=== PATIENT | female | born 1995 | race Caucasian/White ===

== ENCOUNTER 2017-02-15 23:12 | Outpatient (CLI) | payer OTHER ==
[~2017-02-15] VITALS: Ht 160 cm; Wt 79.2 kg
[~2017-02-15 23:12] MED LIST: CYCL-319 PO; HYDR-3498 PO; IBUP-1542 PO
[2017-02-15 23:41] VITALS: BP 117/70; PULSE 107; RESP 18
[2017-02-15] MEDS ORDERED: CALC600T5 PO (23:52)
[2017-02-15] MEDS ORDERED: PREN-17 PO (23:52)
--- NOTE | 2017-02-16 06:54 | RADRPT ---
PROCEDURE: Ultrasound Biophysical profile CLINICAL INDICATION: Contractions, labor TECHNIQUE: Color and gomez-scale ultrasound images of an intrauterine gestation were obtained. COMPARISON: OB ultrasound of 02/16/2017 FINDINGS: A single live intrauterine gestation is identified in cephalic position with an estimated hear t rate of 139 beats per minute. The placenta is located anteriorly and grade II. GIULIANO is 12.2 cm. movement 2/2. tone 2/2. breathing movement 2/2. Qualitative AFV 2/2 Total biophysical profile 10/17 IMPRESSION: 10/17 biophysical profile. RPTAT: HJES .Joshua Sage MD, MD Date Time Electronically viewed and signed by .Joshua Sage MD, on 02/16/2017 06:03 .S/
--- NOTE | 2017-02-16 06:54 | RADRPT ---
PROCEDURE: Obstetrical ultrasound, limited. CLINICAL INDICATION: Pelvic pain. TECHNIQUE: Multiple sonographic images of the pelvis were obtained using transabdominal technique . Images were obtained with gomez scale and color Doppler. The images were reviewed on a PACS works tation. COMPARISON: No prior studies are available for comparison. FINDINGS: There is a single living intrauterine gestation with the fetus in a cephalic presentation. he art tones of 136 beats per minute are identified. The placenta is anterior in location, grade 2. T here is no evidence of placenta previa or abruption. Measurements were made in order to determine age. The results are as follows: BPD =8.74 cm HC =32.48 cm AC =33.03 cm FL =7.16 cm. Estimated gestational age of approximately 36 weeks and 3 days. The estimated date of delivery is 03/13/2017. The EFW = 3000 +/- 450 grams. Estimated weight percentage equals 47.1%. IMPRESSION: Single viable intrauterine gestation of approximately 36 weeks and 3 days, with an ultrasound JA of 03/13/2017. .Rashid Levin MD, MD Date Time Electronically viewed and signed by .Rashid Levin MD, MD on 02/16/2017 06:03 .T/
--- NOTE | 2017-02-16 07:20 | TRIAGE ---
OB Triage Datetime Report Generated by CPN: 02/16/2017 07:19 Datetime: 02/16/2017 06:08 Labor Evaluation Frequency: 2-4 Monitor Mode: External Duration (sec)2399: 40-60 Quality: Mild Pattern: Normal: <= 5 Contractions in 10 Minutes Resting Tone [place]: Relaxed Heart Rate FHR Baseline Rate: 140 Monitor Mode: External US Variability: Moderate 6-25 bpm Accelerations: 15X15 Decelerations: None Category: Category I Pain Assessment Pain Scale: 5 Pain Presence: Intermittent Pain Type: Contraction Pain Location: Abdomen; Back Datetime: 02/16/2017 05:00 Labor Evaluation Frequency: 2-6 Monitor Mode: External Quality: Mild Pattern: Normal: <= 5 Contractions in 10 Minutes Resting Tone [place]: Relaxed Heart Rate FHR Baseline Rate: 130 Monitor Mode: External US Variability: Moderate 6-25 bpm Accelerations: 15X15 Category: Category I Datetime: 02/16/2017 04:20 Stage of : OB Triage Monitor Mode: External Quality: Mild Pattern: Normal: <= 5 Contractions in 10 Minutes Resting Tone [place]: Relaxed Heart Rate FHR Baseline Rate: 130 Monitor Mode: External US FHR Baseline Changes: No Baseline Change Variability: Moderate 6-25 bpm Accelerations: 15X15 Category: Category I Pain Assessment Pain Scale: 8 Pain Presence: Intermittent Pain Type: Contraction Pain Location: Abdomen Datetime: 02/16/2017 03:04 Stage of : OB Triage Datetime: 02/16/2017 02:59 Stage of : OB Triage Labor Evaluation Frequency: 3-6 Monitor Mode: External Duration (sec)2399: 60-100 Quality: Moderate Pattern: Normal: <= 5 Contractions in 10 Minutes Resting Tone [place]: Relaxed Heart Rate FHR Baseline Rate: 135 Monitor Mode: External US FHR Baseline Changes: No Baseline Change Variability: Moderate 6-25 bpm Accelerations: 15X15 Decelerations: Late Category: Category II Vaginal Exam Dilatation (cms): 1.0 Effacement (%): 60 Station: -2 Exam By: E Izaiah Vaginal Bleeding: Scant Cervix, Consistency: Soft Cervix, Position: Posterior Presentation 'A': Cephalic Datetime: 02/16/2017 02:35 Stage of : OB Triage Monitor Mode: External Resting Tone [place]: Relaxed Heart Rate FHR Baseline Rate: 130 Monitor Mode: External US Pain Assessment Pain Scale: 8 Pain Presence: Intermittent Pain Type: Contraction Pain Location: Abdomen Datetime: 02/16/2017 00:15 Stage of : OB Triage Datetime: 02/15/2017 23:59 Labor Evaluation Frequency: 2-3 Monitor Mode: External Duration (sec)2399: 40-60 Quality: Mild Pattern: Normal: <= 5 Contractions in 10 Minutes Resting Tone [place]: Relaxed Heart Rate FHR Baseline Rate: 130 Monitor Mode: External US FHR Baseline Changes: No Baseline Change Variability: Moderate 6-25 bpm Accelerations: 15X15 Decelerations: None Category: Category I Vaginal Exam Dilatation (cms): 1.0 Effacement (%): 40 Station: -2 Exam By: Jerri Bliss Membrane Status: Intact Vaginal Bleeding: Scant Cervix, Consistency: Soft Cervix, Position: Posterior Presentation 'A': Cephalic Datetime: 02/15/2017 15:27 Time of Arrival: 02/15/2017 23:07 EGA: 36.6 Arrived By: Wheelchair Arrived From: Home Chief Complaint: c/o ucs Movement: Present Contractions: Regular Time Contractions Began: 02/15/2017 20:00 Contractions: Q3 Time Provider Notified: 02/16/2017 00:15 Provider Notified: Dr Sutherland Initial Plan: MARÍA JULES
--- NOTE | 2017-02-16 07:35 | PN ---
Triage Information Date/Time 02/16/1710/26/729 Reason for visit: Uterine contractions Weeks of Gestation 37w /Para primigravida Diabetes: none Hypertention: none Objective Vital Signs Date Time Temp Pulse Resp B/P Pulse Ox O2 Delivery O2 Flow Rate FiO2 02/15/17 23:41 98.0 107 18 117/70 Room Air Heart Rate: 140's Contractions: 6-10 Minutes Apart Exam VE 1cm/ 40%/-2 no change in2hrs Results/Medications Imaging Results bpp 10/17 arely 12.2 Disposition: Discharge Assessment/Plan IUP 37w in latent phase plan RTH prn with routine labor instructions JANY LOUISE MD Feb 16, 2017 07:35
== END 2017-02-16 06:59 | disposition home or self-care (01) ==
LOC: OBT 23:12 → L-D 23:13 → OBT 02-16 06:59
PROVIDERS: ATTEND Obstetrics & Gynecology
DX: O62.9 Abnormality of forces of labor, unspecified (principal); Z3A.37 37 weeks gestation of pregnancy
CPT/HCPCS: 76815; 76818; Z7500; G0463

== ENCOUNTER 2017-02-21 14:49 | Outpatient (CLI) | payer OTHER ==
[~2017-02-21] VITALS: Ht 157.5 cm; Wt 81.7 kg
[~2017-02-21 14:49] MED LIST changes: +CALC600T5 PO; -CYCL-319 PO; -HYDR-3498 PO; -IBUP-1542 PO; +PREN-17 PO
[2017-02-21 15:31] VITALS: Ht 157.5 cm; Wt 81.7 kg
[2017-02-21 15:34] VITALS: BP 115/63; PULSE 101; RESP 17
--- NOTE | 2017-02-21 17:22 | RADRPT ---
PROCEDURE: US OB amniotic fluid index. CLINICAL INDICATION: Labor. Clinical estimate gestational age is 37 weeks 5 days with estimated yassine e of delivery 03/09/2017. TECHNIQUE: Multiple sonographic images of the pelvis were obtained. The images were reviewed on a PACS workstation. COMPARISON: US PELVIS 02/16/2017 FINDINGS: There is a single live intrauterine gestation. Cardiac activity is present with 152 beats per minut e. There is a cephalic position. The placenta is anterior and grade 2. There is no evidence for an abruption. There is a normal amount of amniotic fluid with an GIULIANO = 18.3 cm. IMPRESSION: Single live intrauterine gestation. RPTAT: HJES .Joshua Sage MD, MD Date Time Electronically viewed and signed by .Joshua Sage MD, on 02/21/2017 17:21 .S/
--- NOTE | 2017-02-21 18:25 | TRIAGE ---
OB Triage Datetime Report Generated by CPN: 02/21/2017 18:25 Datetime: 02/21/2017 17:33 Labor Evaluation Frequency: 3 Monitor Mode: External Duration (sec)2399: 40-60 Quality: Strong Pattern: Normal: <= 5 Contractions in 10 Minutes Resting Tone [place]: Relaxed Heart Rate FHR Baseline Rate: 130 Monitor Mode: External US FHR Baseline Changes: No Baseline Change Variability: Moderate 6-25 bpm Accelerations: 15X15 Decelerations: None Category: Category I Pain Assessment Pain Scale: 4 Pain Presence: Intermittent Pain Type: Contraction Pain Location: Abdomen Pain Goal: 2 Pain Relief Measures: Comfort Measures Datetime: 02/21/2017 17:00 Labor Evaluation Frequency: 4-8 Monitor Mode: External Duration (sec)2399: 60-80 Quality: Mild Pattern: Normal: <= 5 Contractions in 10 Minutes Resting Tone [place]: Relaxed Heart Rate FHR Baseline Rate: 130 Monitor Mode: External US FHR Baseline Changes: No Baseline Change Variability: Moderate 6-25 bpm Accelerations: 15X15 Decelerations: None Category: Category I Pain Assessment Pain Scale: 4 Pain Presence: Intermittent Pain Type: Contraction Pain Location: Abdomen Pain Goal: 2 Datetime: 02/21/2017 16:51 Vaginal Exam Dilatation (cms): 1.0 Effacement (%): 60 Station: -3 Exam By: MAY Datetime: 02/21/2017 15:28 Time of Arrival: 02/21/2017 16:20 EGA: 37.5 Arrived By: Ambulatory Arrived From: Home Chief Complaint: r/o labor Movement: Present Time Contractions Began: 02/21/2017 10:00 Rupture of Membranes: Denies Vaginal Bleeding: None Vaginal Discharge: Denies Recent Sexual Intercouse: Denies Abdominal Trauma: Not Applicable Time Provider Notified: 02/21/2017 17:40 Provider Notified: ARDALAN Initial Plan: EFM Datetime: 02/21/2017 15:27 Stage of : OB Triage Assessment Type: Triage Maternal Assessment Level of Consciousness: Fully Conscious DTR's/Clonus: DTRs 2+; No Clonus Headache: Denies Blurred Vision: No Respiratory Effort: Unlabored; Regular Rhythm; Equal Expansion Breath Sounds, Left: Clear and Equal Breath Sounds, Right: Clear and Equal Nausea/Vomiting: Denies RUQ Epigastric Pain: Denies Lower Extremities Edema: None Degree: None Upper Extremities Edema: None Degree: None Facial Edema: None Temperature Route: Axillary Fall Risk Assessment History of Falling: (0) No Secondary Diagnosis: (0) No Ambulatory Aid: (0) Bedrest/Nurse Assist IV Therapy: (0) No Gait: (0) Normal/Bedrest/Immobile Mental Status: (0) Oriented to Own Ability Fall Score: 0 Fall Risk Score Definition: No Risk: No action required Datetime: 02/16/2017 07:16 Time of Arrival: 02/21/2017 15:30 EGA: 37.5 Arrived By: Ambulatory Arrived From: Home Chief Complaint: statedshe is tiffanie every 5 min, was at the office, was told to come in to b e checked. Movement: Present Contractions: Irregular Time Contractions Began: 02/21/2017 10:00 Rupture of Membranes: Denies Vaginal Discharge: Denies Recent Sexual Intercouse: Denies Abdominal Trauma: Not Applicable Patient Complaints: Contractions Datetime: 02/16/2017 06:50 Stage of : OB Triage Labor Evaluation Frequency: 2-4 Monitor Mode: External Duration (sec)2399: 40-60 Quality: Mild Pattern: Normal: <= 5 Contractions in 10 Minutes Resting Tone [place]: Relaxed Heart Rate FHR Baseline Rate: 140 Monitor Mode: External US FHR Baseline Changes: No Baseline Change Variability: Moderate 6-25 bpm Accelerations: 15X15 Decelerations: None Category: Category I Pain Presence: Intermittent Pain Type: Cramping Pain Location: Abdomen Datetime: 02/15/2017 15:27 EGA: 36.6
--- NOTE | 2017-02-21 19:56 | PN ---
Triage Information Date/Time 02/20/2017 Reason for visit: Uterine contractions Weeks of Gestation 37 weeks and 5 days /Para 1 para 0 Diabetes: none Hypertention: none Additional information 21-year-old with IUP at 37 weeks and 5 days presented to complain of contractions. Denies any leaking of fluid, vaginal bleeding or any other complaint or decreased movement. Denies any competition during her course Objective Vital Signs Date Time Temp Pulse Resp B/P Pulse Ox O2 Delivery O2 Flow Rate FiO2 02/21/17 15:34 97.9 101 17 115/63 Room Air Heart Rate: 130's Heart Rate Comments Category 1 Exam Const: A&O, NAD Head: [Atraumatic] Abd: [Soft, non tender, non distended. Normal bowel sounds]. Gravid, fundal height consistent with gestational age Skin: [No petechiae or rashes] Back: [No midline or flank tenderness] Ext: [No cyanosis, or edema] [place]: Contractions with occasional irritability Cervical exam: /- Repeat exam after observation and hydration showed no cervical change Results/Medications Imaging Results PROCEDURE: US OB amniotic fluid index. CLINICAL INDICATION: Labor. Clinical estimate gestational age is 37 weeks 5 days with estimated date of delivery 03/09/2017. TECHNIQUE: Multiple sonographic images of the pelvis were obtained. The images were reviewed on a PACS workstation. COMPARISON: US PELVIS 02/16/2017 FINDINGS: There is a single live intrauterine gestation. Cardiac activity is present with 152 beats per minute. There is a cephalic position. The placenta is anterior and grade 2. There is no evidence for an abruption. There is a normal amount of amniotic fluid with an GIULIANO = 18.3 cm. IMPRESSION: Single live intrauterine gestation. RPTAT: HJES Disposition: Discharge Assessment/Plan IUP at 37 weeks and 5 days No evidence of labor testing reassuring No cervical change noted during observation Patient was discharged home with strict labor precaution and kick count and follow-up within 24-48 hours with her primary OB OLEG DANIEL MD Feb 21, 2017 19:56
== END 2017-02-21 17:57 | disposition home or self-care (01) ==
LOC: OBT 14:49 → L-D 14:49 → OBT 17:57
PROVIDERS: ATTEND Obstetrics & Gynecology
DX: O62.9 Abnormality of forces of labor, unspecified (principal); Z3A.37 37 weeks gestation of pregnancy
CPT/HCPCS: 76815

== ENCOUNTER 2017-03-07 21:42 | Inpatient (IN) | END 2017-03-10 14:35 | disposition home or self-care (01) | DRG 775 ==

== ENCOUNTER 2017-10-18 21:13 | Inpatient (IN) | END 2017-10-22 12:30 | disposition left against medical advice (07) | DRG 781 ==